=== PATIENT | male | born 1985 | race Two or more races ===

== ENCOUNTER 2025-07-14 00:09 | Emergency (ER) | payer OTHER, MEDICAID ==
[~2025-07-14] VITALS: Ht 182.9 cm; Wt 100.5 kg
[2025-07-14 00:30] VITALS: BP 143/92; PULSE 90; RESP 16; TEMP 98.8; O2SAT 96
[2025-07-14] MEDS ORDERED: CYCL-837 PO (00:47)
[2025-07-14] MEDS ORDERED: ACET500T58 PO (00:47)
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
--- NOTE | 2025-07-14 00:59 | DVH ---
EXAM: CT CERVICAL WITHOUT CONTRAST INDICATION: left sided neck pain EXAM DATE: 07/14/2025 12:39 AM COMPARISON: None TECHNIQUE: CT of the cervical spine without intravenous contrast. Radiation Dose Information: CT Dose: CTDI volume is 22.9 mGy. Dose-length product is 643.5 mGy*cm FINDINGS: There is no acute displaced fracture. There is minimal endplate osteophytosis. A disc osteophyte complex at C3-4 effaces the thecal sac in contributes to at least mild spinal stenosis. Intervertebral disc heights are preserved. There is mild uncovertebral hypertrophy. The paraspinal soft tissues are unremarkable. IMPRESSION: 1. No acute displaced fracture. 2. Mild degenerative changes of the cervical spine as detailed. If clinical symptoms persist, MRI may be beneficial in further evaluation. END IMPRESSION:
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
== END 2025-07-14 01:05 | disposition home or self-care (01) ==
LOC: ER 00:09
DX: S16.1XXA Strain of muscle, fascia and tendon at neck level, initial encounter (principal); S20.211A Contusion of right front wall of thorax, initial encounter; E11.9 Type 2 diabetes mellitus without complications; Z79.899 Other long term (current) drug therapy; V89.2XXA Person injured in unspecified motor-vehicle accident, traffic, initial encounter; Y93.I9 Activity, other involving external motion; Y92.488 Other paved roadways as the place of occurrence of the external cause; Y99.8 Other external cause status
CPT/HCPCS: 71046; 72125